=== PATIENT | male | born 1985 | race Caucasian/White ===

== ENCOUNTER 2022-06-19 15:34 | Inpatient (IN) | payer BC ==
[~2022-06-19] VITALS: Ht 185.4 cm; Wt 134.3 kg
[~2022-06-19 15:34] MED LIST: HYDR-4209 PO; PRED20TA PO
[2022-06-19] MEDS ORDERED: IV NORMAL SALINE 1000 ML BAG IV ONE (16:00)
[2022-06-19] MEDS ORDERED: METOCLOPRAMIDE HCL 10 MG/2 ML VIAL IV ONE (16:00)
[2022-06-19] MEDS ORDERED: METOCLOPRAMIDE HCL 10 MG/2 ML VIAL ONE (16:05)
--- NOTE | 2022-06-19 16:10 | NUR ---
Patient taken for CT scan.
--- NOTE | 2022-06-19 16:20 | NUR ---
Patient back from CT scan.
[2022-06-19 16:26] LABS: MEAN CORPUSCULAR HEMOGLOBIN 29.6 uug (23.8-33.4); PLATELET COUNT (AUTO) 147 K/uL (152-348)
[2022-06-19 16:30] LABS: CARBON DIOXIDE 13 mmol/L (21-32); CHLORIDE 91 mmol/L (98-107); CREATININE 1.5 mg/dL (0.6-1.3); POTASSIUM 4.8 mmol/L (3.5-5.1); UREA NITROGEN, BLOOD 20 mg/dL (7-18)
[2022-06-19 16:31] LABS: ALANINE AMINOTRANSFERASE 37 U/L (16-63); ALKALINE PHOSPHATASE 139 U/L (50-136); ASPARTATE AMINOTRANSFERASE 5 U/L (15-37); BILIRUBIN,DIRECT 0.1 mg/dL (0.0-0.2); BILIRUBIN,TOTAL 0.8 mg/dL (0.2-1.0); TOTAL PROTEIN, SERUM 7.6 g/dL (6.4-8.2)
[2022-06-19 16:32] LABS: THYROID STIMULATING HORMONE 1.193 mIU/mL (0.358-3.740)
[2022-06-19 16:33] LABS: GLUCOSE 616 mg/dL (74-106)
[2022-06-19] MEDS ORDERED: MORPHINE SULFATE 2 MG/1 ML DISP.SYRIN IV ONE ×2 (16:45→18:00)
[2022-06-19 16:52] LABS: *AMPHETAMINE, URINE NEGATIVE (NEGATIVE); *CANNABINOID, URINE NEGATIVE (NEGATIVE); *COCCAINE, URINE NEGATIVE (NEGATIVE); *PHENCYCLIDINE SCREEN,URINE NEGATIVE (NEGATIVE)
[2022-06-19] MEDS ORDERED: MORPHINE SULFATE 2 MG/1 ML DISP.SYRIN ONE ×4 (16:52→21:37)
[2022-06-19 17:00] LABS: ABG BASE EXCESS -14.8 mmol/L; ABG HCO3 9.6 mmol/L; ABG PCO2 21.5 mmHg (35.0-45.0); ABG PH 7.266 (7.350-7.450); ABG PO2 106.5 mmHg (75.0-100.0); ABG SITE RIGHT RADIAL; ABG TOTAL HEMOGLOBIN 17.6 G/dL (13.5-18.0); COHb 0.4 % (0.5-1.5); MetHb 0.4 % (0.0-1.5); O2Hb 97.3 % (94.0-97.0); VENT MODE ROOM AIR
[2022-06-19] MEDS ORDERED: INSULIN REGULAR, HUMAN 100 UNIT in IV NORMAL SALINE 99 ML IV PRN ×2 (17:00)
[2022-06-19] MEDS ORDERED: NORMAL SALINE IV PRN ×2 (17:15)
[2022-06-19] MEDS ORDERED: INSULIN REGULAR IV PRN ×2 (17:15)
[2022-06-19] MEDS ORDERED: HUMAN IV PRN ×2 (17:15)
[2022-06-19] MEDS ORDERED: HYDR-3980 PO (17:47)
[2022-06-19] MEDS ORDERED: ACETAMINOPHEN 325 MG TABLET PO ONE (18:00)
[2022-06-19] MEDS: BLOOD SUGAR DIAGNOSTIC 1 EACH STRIP VI SCH ×6 (18:06→23:00)
[2022-06-19] MEDS ORDERED: ACETAMINOPHEN ES 500 MG TABLET ONE (18:08)
[2022-06-19 18:33] LABS: CREATININE 1.3 mg/dL (0.6-1.3); MAGNESIUM 2.3 mg/dL (1.8-2.4); PHOSPHOROUS 2.7 mg/dL (2.5-4.9); POTASSIUM 4.5 mmol/L (3.5-5.1)
[2022-06-19 19:00] VITALS: BP 145/94
[2022-06-19] MEDS ORDERED: IV NS 1000 ML 1,000 ML IV PRN (19:00)
[2022-06-19] MEDS ORDERED: MORPHINE SULFATE 2 MG/1 ML DISP.SYRIN IV PRN (19:00)
[2022-06-19] MEDS ORDERED: ONDANSETRON 4 MG/2 ML VIAL ONE (19:38)
[2022-06-19] MEDS: ONDANSETRON 4 MG/2 ML VIAL IV PRN (19:39)
[2022-06-19 20:00] VITALS: BP 137/96
--- NOTE | 2022-06-19 20:00 | NUR ---
patient in bed [id number]. patient denies pain and no discomfort .no respiratory distress noted breathing even and unlabored on room air . patients at b/s questions answered . patient on insulin drip and on fingerstick q 1 hourly .
[2022-06-19] MEDS ORDERED: DEXTROSE 50% 50 ML DISP.SYRIN IV PRN (20:15)
[2022-06-19 21:00] VITALS: BP 121/101
--- NOTE | 2022-06-19 21:30 | NUR ---
called [facility] c/o pain still with headache even after the morphine ivp , as per patient he takes [place] at home before for pain .spoked with amador holcomb and informed him patient was on [place] for pain . bill increase the time for pain morphine prn instead .
[2022-06-19] MEDS: MORPHINE SULFATE 2 MG/1 ML DISP.SYRIN IV PRN (21:38)
[2022-06-19 22:00] VITALS: BP 127/85
[2022-06-19 22:17] LABS: CREATININE 1.1 mg/dL (0.6-1.3); POTASSIUM 3.5 mmol/L (3.5-5.1)
--- NOTE | 2022-06-19 22:26 | NUR ---
D/C NORMAL SALINE BLOOD SUGAR 221 , CHANGED TO D5 NS AT 200 ML/HR .
--- NOTE | 2022-06-19 22:27 | NUR ---
STOP INSULIN DRIP BLOOD SUGAR <250 ,NOW IT 221
--- NOTE | 2022-06-19 22:45 | NUR ---
called [facility] for GIOVANI ENGLISH c/o patient BMP results ,awaiting call back .
[2022-06-19 23:00] VITALS: BP 135/85
--- NOTE | 2022-06-19 23:30 | NUR ---
ER IN CHARGE CALLED [facility] ,still awaiting call back .
[2022-06-20] VITALS (7 sets, daily range): BP systolic 104–158; BP diastolic 86–101
--- NOTE | 2022-06-20 | NUR ---
pain medication morphine given prn for headache as per patient request see emar.
[2022-06-20] MEDS: MORPHINE SULFATE 2 MG/1 ML DISP.SYRIN IV PRN ×7 (00:01→22:57)
[2022-06-20] MEDS ORDERED: DEXTROSE 50% 50 ML DISP.SYRIN IV PRN ×2 (00:45→12:00)
--- NOTE | 2022-06-20 01:00 | NUR ---
spoked with [facility]RE[facility] COMMISSIONER malorie TELLES and dictated bmp results ,informed about the insulin drip was d/c as per bill previous order and d/c normal saline and started patient on d5ns at 200 ml with order to do q2 Accu checks and to follow aggressive sliding scale and then after q2 x2 accu check to do q4 hourly. BMP for 0200
[2022-06-20] MEDS: BLOOD SUGAR DIAGNOSTIC 1 EACH STRIP VI SCH ×14 (01:03→21:15)
[2022-06-20] MEDS ORDERED: INSULIN REGULAR, HUMAN 300 UNIT/3 ML VIAL ONE (01:07)
[2022-06-20] MEDS: INSULIN REGULAR, HUMAN 300 UNIT/3 ML VIAL SQ PRN ×4 (01:10→20:53)
--- NOTE | 2022-06-20 01:30 | NUR ---
patient was crying and requesting for food given snack . advised not to eat so much where checking blood sugar q1 hourly and blood sugar been high .
[2022-06-20] MEDS ORDERED: ONDANSETRON 4 MG/2 ML VIAL ONE ×4 (01:42→14:50)
[2022-06-20] MEDS: ONDANSETRON 4 MG/2 ML VIAL IV PRN ×3 (01:44→14:52)
[2022-06-20 02:18] LABS: CREATININE 1.2 mg/dL (0.6-1.3); POTASSIUM 3.8 mmol/L (3.5-5.1)
[2022-06-20] MEDS ORDERED: MORPHINE SULFATE 2 MG/1 ML DISP.SYRIN ONE ×6 (02:36→14:50)
[2022-06-20] MEDS ORDERED: INSULIN REGULAR IV PRN ×2 (03:00)
[2022-06-20] MEDS ORDERED: HUMAN IV PRN ×2 (03:00)
[2022-06-20] MEDS ORDERED: NORMAL SALINE IV PRN ×2 (03:00)
[2022-06-20] MEDS ORDERED: INSULIN REGULAR, HUMAN 100 UNIT in IV NORMAL SALINE 99 ML IV PRN ×2 (03:30)
[2022-06-20] MEDS ORDERED: IV D5%-1/2NS-KCL 10 MEQ 1,000 ML IV ONE (03:30)
--- NOTE | 2022-06-20 03:30 | NUR ---
patient requested for something to eat given sandwich ,jello and water .patient able to feed self .
[2022-06-20] MEDS ORDERED: IV D5%-1/2NS-KCL 10 MEQ 1,000 ML ONE (04:10)
[2022-06-20 07:11] LABS: HEMATOCRIT 46.5 % (36.7-47.1); MEAN CORPUSCULAR HEMOGLOBIN 29.3 uug (23.8-33.4); MEAN CORPUSCULAR VOLUME 84.7 fL (73.0-96.2); PLATELET COUNT (AUTO) 124 K/uL (152-348)
[2022-06-20] MEDS ORDERED: IV D5%-1/2NS-KCL 10 MEQ 1,000 ML IV PRN (07:15)
[2022-06-20] MEDS ORDERED: BLOOD SUGAR DIAGNOSTIC 1 EACH STRIP VI SCH ×3 (07:30)
[2022-06-20 07:39] LABS: THYROID STIMULATING HORMONE 2.898 mIU/mL (0.358-3.740)
[2022-06-20 07:41] LABS: CREATININE 1.2 mg/dL (0.6-1.3); MAGNESIUM 1.8 mg/dL (1.8-2.4); PHOSPHOROUS 1.8 mg/dL (2.5-4.9); POTASSIUM 3.5 mmol/L (3.5-5.1)
[2022-06-20] MEDS ORDERED: INSULIN REGULAR, HUMAN 300 UNITS/3 ML VIAL SQ PRN (12:00)
[2022-06-20] MEDS ORDERED: INSULIN GLARGINE,HUM 300 UNITS/3 ML CARTRIDGE SQ ONE ×2 (12:06→12:15)
[2022-06-20] MEDS ORDERED: NEUTRA PHOS PACKET PO ONE (14:15)
--- NOTE | 2022-06-20 15:31 | NUR ---
REPORT WAS GIVEN TO RN M/S. PT WAS TRANSFERED TO ROOM #308.
--- NOTE | 2022-06-20 15:40 | NUR ---
TRANSFERRED FROM ER A 37 YO MALE WITH ADM DX OF DKA, AWAKE ALERT AND VERBALLY RESPONSIVE, ORIENTED X3 WITH AT BEDSIDE. ROUTINE ADMISSION ASSESSMENT INITIATED. PER DR ENGLISH PT WILL CONTINUE MS STATUS AND MONITORING SUGAR
[2022-06-20] MEDS ORDERED: SODIUM PHOSPHATE MM 15 MMOL in IV NORMAL SALINE 250 ML IV ONE (17:00)
[2022-06-20] MEDS ORDERED: IV D5/ 0.9% NACL 1,000 ML IV PRN (21:00)
[2022-06-21] MEDS: ONDANSETRON 4 MG/2 ML VIAL IV PRN ×2 (01:57→11:53)
[2022-06-21] MEDS: MORPHINE SULFATE 2 MG/1 ML DISP.SYRIN IV PRN ×2 (02:46→12:15)
[2022-06-21 05:49] VITALS: BP 123/80
[2022-06-21] MEDS: BLOOD SUGAR DIAGNOSTIC 1 EACH STRIP VI SCH ×2 (06:39→12:09)
--- NOTE | 2022-06-21 07:01 | NUR ---
Slept intermittently throughout the night, easy to arouse alert and oriented x 4. No acute distress noted, denies chest pain. C/o headache, relieved by morphine. R/L FA IV site intact and patent. Needs assessed and attended to. Call light within reach.
--- NOTE | 2022-06-21 08:00 | NUR ---
PT IS AWAKE AND HAVING BFAST. MD DISCUSSED DISCHARGE PLANNING WITH THE PT. PT VERBALIZED UNDERSTANDING.
[2022-06-21] MEDS: INSULIN REGULAR, HUMAN 300 UNIT/3 ML VIAL SQ PRN ×2 (08:13→12:13)
[2022-06-21 08:19] VITALS: BP 129/97
[2022-06-21 09:24] LABS: POTASSIUM 3.7 mmol/L (3.5-5.1)
--- NOTE | 2022-06-21 11:00 | NUR ---
DIET MODIFICATION AND EXERCISE WAS DISCUSSED WITH THE PATIENT. ALSO EDUCATED PT ABOUT HOW TO USE GLUCOMETER AND HOW TO ADMINISTER INSULIN BY HIMSELF. PT VERBALIZED UNDERSTANDING.
--- NOTE | 2022-06-21 11:38 | NUR ---
Jono raymundo in [facility] - 06/21/22 at 1548 by FLORY MORPHINE SULFATE 2 MG IVP WAS ADMINISTERED ACCORDING TO DR AMADOR ACOSTA.
--- NOTE | 2022-06-21 13:00 | NUR ---
PT WAS DISCHARGE. PT WILL GO HOME. HIS AT BEDSIDE AND WILL DRIVE HIM HOME. PT BELONGINGS ACCOUNTED FOR.
--- NOTE | 2022-06-21 15:49 | NUR ---
LATE ENTRY : MORPHINE SULFATE 2 MG IVP WAS IDMINISTRED ACCORDING TO DR ENGLISH PRN ORDER AT 1138 ON 06/20/22.
== END 2022-06-21 13:50 | disposition home or self-care (01) | DRG 638 ==
LOC: ER 15:34 → TRANSITION 20:35 → MEDSURG3 06-20 15:03
DX: E11.10 Type 2 diabetes mellitus with ketoacidosis without coma (principal); N17.9 Acute kidney failure, unspecified; Z20.822 Contact with and (suspected) exposure to COVID-19; E83.39 Other disorders of phosphorus metabolism; E86.1 Hypovolemia; Z96.643 Presence of artificial hip joint, bilateral
CPT/HCPCS: 36415; 36600; 70450; 71045; 83735; 83935; 84100; 84300; 84443; 84484; 85025; 85730; 93005; A4663; A9150; G0378; J1815; J2270; J2405; J2765; J3490; J7040; J7042